=== PATIENT | male | born 1990 | race Caucasian/White ===

== ENCOUNTER 2023-07-09 05:10 | Inpatient (IN) | payer MEDICAID ==
[~2023-07-09] VITALS: Ht 180.3 cm; Wt 94.0 kg
[2023-07-09 05:38] LABS: COVID AG,FIA SOURCE NASAL SWAB
[2023-07-09 05:40] LABS: BASOPHILS % (AUTO) 0.4 % (0.0-2.0); EOSINOPHILS % (AUTO) 0.8 % (1.0-6.0); HEMATOCRIT 44.8 % (41-53); HEMOGLOBIN 15.1 g/dL (13.5-17.5); LYMPHOCYTES # (AUTO) 2.1 K/uL (1.0-4.8); LYMPHOCYTES % (AUTO) 15.1 % (22.0-44.0); MEAN CORPUSCULAR HEMOGLOBIN 30.6 pg (26.0-34.0); MEAN CORPUSCULAR HGB CONC 33.7 G/dL (31.0-37.0); MEAN CORPUSCULAR VOLUME 91 fL (80-100); MONOCYTES # (AUTO) 0.9 K/uL (0.1-1.0); MONOCYTES % (AUTO) 6.9 % (2.0-9.0); NEUTROPHILS # (AUTO) 10.5 K/uL (1.8-7.7); NEUTROPHILS % (AUTO) 76.8 % (40.0-70.0); PLATELET COUNT (AUTO) 273 K/uL (150-450); RED BLOOD CELL COUNT(AUTO) 4.93 MIL/uL (4.50-5.90); RED CELL DISTRIBUTION WIDTH 13.3 % (11.5-14.5); WHITE BLOOD COUNT (AUTO) 13.7 K/uL (4.5-11.0)
[2023-07-09 05:50] LABS: ANION GAP 10 mmol/L (8-16); CALCIUM, TOTAL 8.9 mg/dL (8.8-10.5); CARBON DIOXIDE 28 mmol/L (22-29); CHLORIDE 104 mmol/L (98-107); CREATININE 1.46 mg/dL (0.60-1.30); GLOMERULAR FILTR. RATE CALC 56 mL/min (>60); GLUCOSE,RANDOM 113 mg/dL (70-110); POTASSIUM 4.4 mmol/L (3.5-5.1); SODIUM SERUM 142 mmol/L (136-145); UREA NITROGEN, BLOOD 20 mg/dL (7-18)
[2023-07-09 05:55] LABS: ALANINE AMINOTRANSFERASE 27 U/L (12-78); ALBUMIN 4.6 g/dL (3.4-5.0); ALKALINE PHOSPHATASE 70 U/L (46-116); ASPARTATE AMINOTRANSFERASE 19 U/L (15-37); BILIRUBIN,TOTAL 0.8 mg/dL (0.1-1.0); TOTAL PROTEIN, SERUM 7.9 g/dL (6.4-8.2)
[2023-07-09 05:57] LABS: ALCOHOL, URINE DRUG SCREEN NEGATIVE (NEGATIVE); AMPHET/METH SCREEN,URINE NEGATIVE (NEGATIVE); BARBITURATE SCREEN, URINE NEGATIVE (NEGATIVE); BENZODIAZEPINES SCREEN,URINE NEGATIVE (NEGATIVE); CANNABINOID SCREEN,URINE POSITIVE (NEGATIVE); COCAINE SCREEN,URINE NEGATIVE (NEGATIVE); METHADONE SCREEN, URINE NEGATIVE (NEGATIVE); OPIATE SCREEN,URINE NEGATIVE (NEGATIVE); PH,URINE DRUG SCREEN 5.5 (5.0-8.0); PHENCYCLIDINE SCREEN,URINE NEGATIVE (NEGATIVE)
[2023-07-09 05:59] LABS: SARS-COV2 (COVID) ANTIGEN,FIA Negative (Negative)
[2023-07-09 06:08] LABS: ALCOHOL, BLOOD (SERUM) < 3 mg/dL (0-10)
[2023-07-09] MEDS: HALOPERIDOL 5 MG TABLET PO ONE (07:43)
[2023-07-09] MEDS: DiphenhydrAMINE HCL 50 MG CAPSULE PO ONE (07:43)
[2023-07-09 08:08] LABS: LITHIUM 0.44 mmol/L (0.60-1.20)
[2023-07-09] MEDS ORDERED: MIRT-89 PO (08:18)
[2023-07-09] MEDS ORDERED: LITH300C3 PO (08:18)
[2023-07-09 15:29] VITALS: RESP 17
[2023-07-09] MEDS: ACETAMINOPHEN 325 MG TABLET PO PRN (15:29)
[2023-07-09] MEDS: LORazepam 2 MG TABLET PO PRN (16:14)
[2023-07-09 16:29] VITALS: RESP 18
[2023-07-09 19:01] VITALS: RESP 18
[2023-07-09] MEDS: IBUPROFEN 600 MG TABLET PO PRN (19:01)
[2023-07-09] MEDS: HALOPERIDOL 5 MG TABLET PO PRN (19:01)
[2023-07-09 20:00] VITALS: BP 130/70; PULSE 82; RESP 18; TEMP 98; O2SAT 95
[2023-07-09 20:28] VITALS: BP 133/85; PULSE 84; TEMP 98.4; O2SAT 95
[2023-07-09] MEDS ORDERED: BENZOCAINE/MENTHOL LOZENGE PO PRN (21:45)
[2023-07-09] MEDS ORDERED: OMEPRAZOLE 20 MG CAPSULE PO PRN (21:45)
[2023-07-09] MEDS ORDERED: PETROLATUM,WHITE 28 GM JELLY TP PRN (21:45)
[2023-07-09] MEDS ORDERED: LOPERAMIDE HCL 2 MG CAPSULE PO PRN (21:45)
[2023-07-09] MEDS ORDERED: MAG HYDROX/ALUMINUM HYD/SIMETH ES 30 ML SUSPENSION UDCUP PO PRN (21:45)
[2023-07-09] MEDS ORDERED: DOCUSATE SODIUM 100 MG CAPSULE PO PRN (21:45)
[2023-07-09] MEDS ORDERED: ONDANSETRON HCL 4 MG TABLET PO PRN (21:45)
[2023-07-09] MEDS ORDERED: ALBUTEROL SULFATE HFA 90 MCG/PUFF 8 GM INHALER IH PRN (21:45)
[2023-07-09] MEDS ORDERED: CloNIDine HCL 0.1 MG TABLET PO PRN (21:45)
[2023-07-09] MEDS ORDERED: MAGNESIUM HYDROXIDE SUSPENSION 30 ML UDCUP PO PRN (21:45)
[2023-07-09] MEDS ORDERED: BACITRACIN 28 GM OINTMENT TP PRN (21:45)
[2023-07-10] MEDS: ZOLPIDEM TARTRATE 10 MG TABLET PO PRN (02:37)
[2023-07-10 08:27] VITALS: BP 127/74; PULSE 95; RESP 18; TEMP 97.7; O2SAT 94
[2023-07-10] MEDS: LITHIUM CARBONATE 300 MG CAPSULE PO SCH (20:06)
[2023-07-10 20:10] VITALS: RESP 20
[2023-07-11 08:12] LABS: BASOPHILS % (AUTO) 0.4 % (0.0-2.0); EOSINOPHILS % (AUTO) 2.8 % (1.0-6.0); HEMATOCRIT 41.4 % (41-53); HEMOGLOBIN 13.9 g/dL (13.5-17.5); LYMPHOCYTES # (AUTO) 1.6 K/uL (1.0-4.8); LYMPHOCYTES % (AUTO) 14.4 % (22.0-44.0); MEAN CORPUSCULAR HEMOGLOBIN 30.9 pg (26.0-34.0); MEAN CORPUSCULAR HGB CONC 33.5 G/dL (31.0-37.0); MEAN CORPUSCULAR VOLUME 92 fL (80-100); MONOCYTES # (AUTO) 0.7 K/uL (0.1-1.0); MONOCYTES % (AUTO) 6.2 % (2.0-9.0); NEUTROPHILS # (AUTO) 8.5 K/uL (1.8-7.7); NEUTROPHILS % (AUTO) 76.2 % (40.0-70.0); PLATELET COUNT (AUTO) 210 K/uL (150-450); RED CELL DISTRIBUTION WIDTH 13.2 % (11.5-14.5); WHITE BLOOD COUNT (AUTO) 11.2 K/uL (4.5-11.0)
[2023-07-11 08:33] LABS: ALANINE AMINOTRANSFERASE 29 U/L (12-78); ALBUMIN 3.6 g/dL (3.4-5.0); ALKALINE PHOSPHATASE 64 U/L (46-116); ANION GAP 7 mmol/L (8-16); ASPARTATE AMINOTRANSFERASE 20 U/L (15-37); BILIRUBIN,TOTAL 0.5 mg/dL (0.1-1.0); CALCIUM, TOTAL 8.5 mg/dL (8.8-10.5); CARBON DIOXIDE 28 mmol/L (22-29); CHLORIDE 104 mmol/L (98-107); CHOL/HDL RATIO 2.4 (4.2-7.3); CHOLESTEROL 111 mg/dL (131-200); CREATININE 0.95 mg/dL (0.60-1.30); GLOMERULAR FILTR. RATE CALC > 60 mL/min (>60); GLUCOSE,RANDOM 89 mg/dL (70-110); HDL CHOLESTEROL 47 mg/dL (40-60); LDL CHOL (CALC.) 52 mg/dL (0-130); POTASSIUM 4.4 mmol/L (3.5-5.1); SODIUM SERUM 139 mmol/L (136-145); TOTAL PROTEIN, SERUM 6.7 g/dL (6.4-8.2); TRIGLYCERIDES 59 mg/dL (15-150); UREA NITROGEN, BLOOD 9 mg/dL (7-18)
[2023-07-11 08:50] VITALS: BP 152/80; PULSE 115; RESP 19; TEMP 98.2
[2023-07-11 08:58] LABS: FREE T4 (FREE THYROXINE) 1.14 ng/dL (0.76-1.46); T4 (THYROXINE) 7.7 mcg/dL (4.7-13.3); THYROID STIMULATING HORMONE 2.11 uIU/mL (0.36-3.74)
== END 2023-07-11 15:50 | disposition home or self-care (01) | DRG 750 ==
LOC: EMS 05:12 → B3A 09:35
PROVIDERS: ADMIT Psychiatry & Neurology Psychiatry; ATTEND Psychiatry & Neurology Psychiatry
DX: F25.9 Schizoaffective disorder, unspecified (principal); N17.9 Acute kidney failure, unspecified; F31.9 Bipolar disorder, unspecified; F41.9 Anxiety disorder, unspecified; G47.00 Insomnia, unspecified; Z20.822 Contact with and (suspected) exposure to COVID-19; F14.90 Cocaine use, unspecified, uncomplicated; K59.00 Constipation, unspecified; K21.9 Gastro-esophageal reflux disease without esophagitis; Z88.8 Allergy status to other drugs, medicaments and biological substances; Z91.012 Allergy to eggs; Z91.018 Allergy to other foods
CPT/HCPCS: 80053; 80061; 80178; 80307; 84436; 84439; 84443; 85025; 86592; 99285; G0480

== ENCOUNTER 2023-08-14 02:08 | Inpatient (IN) | payer MEDICAID ==
[~2023-08-14] VITALS: Ht 180.3 cm; Wt 87.3 kg
[~2023-08-14 02:08] MED LIST: LITH300C3 PO
[2023-08-14] MEDS: ACETAMINOPHEN 500 MG TABLET PO ONE (03:06)
[2023-08-14] MEDS: BACITRACIN 28 GM OINTMENT TP ONE (03:06)
[2023-08-14 03:18] LABS: BASOPHILS % (AUTO) 0.7 % (0.0-2.0); EOSINOPHILS % (AUTO) 3.1 % (1.0-6.0); HEMATOCRIT 39.3 % (41-53); HEMOGLOBIN 13.3 g/dL (13.5-17.5); LYMPHOCYTES # (AUTO) 1.9 K/uL (1.0-4.8); LYMPHOCYTES % (AUTO) 27.2 % (22.0-44.0); MEAN CORPUSCULAR HEMOGLOBIN 30.6 pg (26.0-34.0); MEAN CORPUSCULAR HGB CONC 33.9 G/dL (31.0-37.0); MEAN CORPUSCULAR VOLUME 90 fL (80-100); MONOCYTES # (AUTO) 0.6 K/uL (0.1-1.0); NEUTROPHILS # (AUTO) 4.1 K/uL (1.8-7.7); PLATELET COUNT (AUTO) 264 K/uL (150-450); RED BLOOD CELL COUNT(AUTO) 4.36 MIL/uL (4.50-5.90); RED CELL DISTRIBUTION WIDTH 12.9 % (11.5-14.5); WHITE BLOOD COUNT (AUTO) 6.9 K/uL (4.5-11.0)
[2023-08-14 03:25] LABS: ANION GAP 6 mmol/L (8-16); CARBON DIOXIDE 29 mmol/L (22-29); CHLORIDE 105 mmol/L (98-107); CREATININE 0.93 mg/dL (0.60-1.30); GLOMERULAR FILTR. RATE CALC > 60 mL/min (>60); GLUCOSE,RANDOM 102 mg/dL (70-110); POTASSIUM 3.9 mmol/L (3.5-5.1); SODIUM SERUM 140 mmol/L (136-145); UREA NITROGEN, BLOOD 13 mg/dL (7-18)
[2023-08-14 03:37] LABS: ALCOHOL, BLOOD (SERUM) < 3 mg/dL (0-10)
[2023-08-14 06:02] LABS: COVID AG,FIA SOURCE NASAL SWAB
[2023-08-14 06:36] LABS: SARS-COV2 (COVID) ANTIGEN,FIA Negative (Negative)
[2023-08-14] MEDS: HALOPERIDOL 5 MG TABLET PO ONE (09:14)
[2023-08-14] MEDS: LORazepam 2 MG TABLET PO ONE (09:14)
[2023-08-14] MEDS ORDERED: ZOLPIDEM TARTRATE 10 MG TABLET PO PRN (09:45)
[2023-08-14] MEDS ORDERED: LORazepam 2 MG TABLET PO PRN (09:45)
[2023-08-14] MEDS ORDERED: HALOPERIDOL 5 MG TABLET PO PRN (09:45)
[2023-08-14 09:48] LABS: ALCOHOL, URINE DRUG SCREEN NEGATIVE (NEGATIVE); AMPHET/METH SCREEN,URINE NEGATIVE (NEGATIVE); BARBITURATE SCREEN, URINE NEGATIVE (NEGATIVE); BENZODIAZEPINES SCREEN,URINE NEGATIVE (NEGATIVE); CANNABINOID SCREEN,URINE POSITIVE (NEGATIVE); COCAINE SCREEN,URINE NEGATIVE (NEGATIVE); METHADONE SCREEN, URINE NEGATIVE (NEGATIVE); OPIATE SCREEN,URINE NEGATIVE (NEGATIVE); PHENCYCLIDINE SCREEN,URINE NEGATIVE (NEGATIVE)
[2023-08-14 20:03] VITALS: BP 124/72; PULSE 78; RESP 16; TEMP 98.6
[2023-08-14 20:08] VITALS: BP 124/72; PULSE 78; RESP 16; TEMP 98.6; O2SAT 98
[2023-08-14] MEDS: ZOLPIDEM TARTRATE 10 MG TABLET PO PRN (20:09)
[2023-08-15 08:11] VITALS: BP 131/74; PULSE 92; RESP 17; TEMP 97.6; O2SAT 98
[2023-08-15] MEDS: LORazepam 2 MG TABLET PO PRN (13:26)
[2023-08-15] MEDS: HALOPERIDOL 5 MG TABLET PO PRN (13:26)
[2023-08-15] MEDS: LURASIDONE HCL 20 MG TABLET PO SCH (21:12)
[2023-08-16] MEDS ORDERED: MAG HYDROX/ALUMINUM HYD/SIMETH ES 30 ML SUSPENSION UDCUP PO PRN ×2 (09:15)
[2023-08-16] MEDS ORDERED: MAGNESIUM HYDROXIDE SUSPENSION 30 ML UDCUP PO PRN ×2 (09:15)
[2023-08-16] MEDS ORDERED: LOPERAMIDE HCL 2 MG CAPSULE PO PRN ×2 (09:15)
[2023-08-16] MEDS ORDERED: NICOTINE 14 MG/24 HOUR PATCH TD PRN ×2 (09:15)
[2023-08-16] MEDS ORDERED: PETROLATUM,WHITE 28 GM JELLY TP PRN ×2 (09:15)
[2023-08-16] MEDS ORDERED: GuaiFENesin/D-METHORPHAN [SUGAR-FREE] 200-20MG/10 ML SYRUP UDCUP PO PRN ×2 (09:15)
[2023-08-16] MEDS ORDERED: ONDANSETRON HCL 4 MG TABLET PO PRN ×2 (09:15)
[2023-08-16] MEDS ORDERED: ALBUTEROL SULFATE HFA 90 MCG/PUFF 8 GM INHALER IH PRN ×2 (09:15)
[2023-08-16] MEDS ORDERED: CloNIDine HCL 0.1 MG TABLET PO PRN ×2 (09:15)
[2023-08-16] MEDS ORDERED: ACETAMINOPHEN 325 MG TABLET PO PRN ×2 (09:15)
[2023-08-16] MEDS ORDERED: DOCUSATE SODIUM 100 MG CAPSULE PO PRN (09:15)
[2023-08-16] MEDS ORDERED: IBUPROFEN 400 MG TABLET PO PRN ×2 (09:15)
[2023-08-16 09:25] VITALS: BP 135/75; PULSE 99; RESP 17; TEMP 97.5; O2SAT 96
[2023-08-16] MEDS: MUPIROCIN CALCIUM 2% 22 GM OINTMENT NASAL SCH (17:00)
[2023-08-16] MEDS: ETHYL ALCOHOL 62% ANTISEPTIC NASAL SANITIZER 0.6 ML AMPUL NASAL SCH (19:42)
[2023-08-16 20:24] VITALS: BP 125/76; PULSE 79; RESP 16; TEMP 98.4; O2SAT 100
[2023-08-17 09:17] VITALS: BP 124/80; PULSE 82; RESP 18; TEMP 98; O2SAT 99
[2023-08-17] MEDS: DOCUSATE SODIUM 100 MG CAPSULE PO PRN (09:22)
[2023-08-17] MEDS ORDERED: HALOPERIDOL LACTATE 5 MG/ML VIAL ONE ×2 (14:07→14:12)
[2023-08-17] MEDS ORDERED: LORazepam 2 MG/ML VIAL ONE ×2 (14:07→14:12)
[2023-08-17] MEDS ORDERED: DiphenhydrAMINE HCL 50 MG/ML VIAL ONE (14:07)
[2023-08-17] MEDS: LORazepam 2 MG/ML VIAL IM ONE (14:28)
[2023-08-17] MEDS: HALOPERIDOL LACTATE 5 MG/ML VIAL IM ONE (14:28)
[2023-08-17] MEDS: DiphenhydrAMINE HCL 50 MG/ML VIAL IM ONE (14:28)
[2023-08-17 20:25] VITALS: BP 127/73; PULSE 80; RESP 17; TEMP 98
[2023-08-18 08:19] LABS: BASOPHILS % (AUTO) 0.6 % (0.0-2.0); EOSINOPHILS % (AUTO) 3.6 % (1.0-6.0); HEMATOCRIT 41.3 % (41-53); HEMOGLOBIN 13.8 g/dL (13.5-17.5); LYMPHOCYTES # (AUTO) 2.2 K/uL (1.0-4.8); LYMPHOCYTES % (AUTO) 32.2 % (22.0-44.0); MEAN CORPUSCULAR HEMOGLOBIN 30.4 pg (26.0-34.0); MEAN CORPUSCULAR HGB CONC 33.4 G/dL (31.0-37.0); MEAN CORPUSCULAR VOLUME 91 fL (80-100); MONOCYTES # (AUTO) 0.6 K/uL (0.1-1.0); MONOCYTES % (AUTO) 8.7 % (2.0-9.0); NEUTROPHILS # (AUTO) 3.7 K/uL (1.8-7.7); NEUTROPHILS % (AUTO) 54.9 % (40.0-70.0); PLATELET COUNT (AUTO) 238 K/uL (150-450); RED BLOOD CELL COUNT(AUTO) 4.54 MIL/uL (4.50-5.90); RED CELL DISTRIBUTION WIDTH 13.3 % (11.5-14.5); WHITE BLOOD COUNT (AUTO) 6.7 K/uL (4.5-11.0)
[2023-08-18 08:30] VITALS: BP 124/64; PULSE 95; RESP 14; TEMP 97.8; O2SAT 99
[2023-08-18 08:30] LABS: HEMOGLOBIN A1C 5.8 % (3.8-5.6)
[2023-08-18 08:34] LABS: LITHIUM < 0.20 mmol/L (0.60-1.20)
[2023-08-18 08:51] LABS: ALANINE AMINOTRANSFERASE 30 U/L (12-78); ALBUMIN 3.2 g/dL (3.4-5.0); ALKALINE PHOSPHATASE 51 U/L (46-116); ANION GAP 6 mmol/L (8-16); ASPARTATE AMINOTRANSFERASE 27 U/L (15-37); BILIRUBIN,TOTAL 0.3 mg/dL (0.1-1.0); CALCIUM, TOTAL 9.1 mg/dL (8.8-10.5); CARBON DIOXIDE 27 mmol/L (22-29); CHLORIDE 105 mmol/L (98-107); CHOL/HDL RATIO 2.6 (4.2-7.3); CHOLESTEROL 132 mg/dL (131-200); CREATININE 0.98 mg/dL (0.60-1.30); GLOMERULAR FILTR. RATE CALC > 60 mL/min (>60); GLUCOSE,RANDOM 104 mg/dL (70-110); HDL CHOLESTEROL 51 mg/dL (40-60); LDL CHOL (CALC.) 65 mg/dL (0-130); POTASSIUM 4.3 mmol/L (3.5-5.1); SODIUM SERUM 138 mmol/L (136-145); THYROID STIMULATING HORMONE 1.53 uIU/mL (0.36-3.74); TOTAL PROTEIN, SERUM 6.3 g/dL (6.4-8.2); TRIGLYCERIDES 80 mg/dL (15-150); UREA NITROGEN, BLOOD 12 mg/dL (7-18)
[2023-08-18] MEDS ORDERED: LURA20TA2 PO (11:10)
[2023-08-18] MEDS ORDERED: LURASIDONE HCL 20 MG TABLET PO SCH (17:00)
== END 2023-08-18 14:13 | disposition left against medical advice (07) | DRG 753 ==
LOC: EMS 02:08 → B2S 15:39 → B3A 08-15 16:10
PROVIDERS: ADMIT Psychiatry & Neurology Psychiatry; ATTEND Psychiatry & Neurology Psychiatry
PROC: GZHZZZZ Group Psychotherapy (ICD-10-PCS; principal; 2023-08-15)
PROC: GZ56ZZZ Individual Psychotherapy, Supportive (ICD-10-PCS; 2023-08-15)
DX: F31.9 Bipolar disorder, unspecified (principal); F20.0 Paranoid schizophrenia; D64.9 Anemia, unspecified; G47.00 Insomnia, unspecified; M79.672 Pain in left foot; M79.671 Pain in right foot; Z91.148 Patient's other noncompliance with medication regimen for other reason; Z88.8 Allergy status to other drugs, medicaments and biological substances; Z20.822 Contact with and (suspected) exposure to COVID-19; Z53.29 Procedure and treatment not carried out because of patient's decision for other reasons
CPT/HCPCS: 80048; 80053; 80061; 80178; 80307; 83036; 84443; 85025; 87081; G0480; J1200; J1630; J2060; Q9967